=== PATIENT | male | born 1940 | race African-American/Black ===

== ENCOUNTER 2020-05-08 17:35 | Inpatient (IN) | payer MEDICARE, MEDICAID, OTHER ==
[2020-05-08 18:28] LABS: INR-International Normal Ratio 1.3; PTT 35.4 sec (22.9-36.1); Prothrombin Time 16.8 sec (12.0-14.7)
[2020-05-08 18:31] LABS: Hemoglobin 10.4 g/dL (14.0-18.0); Mean Corpuscular HGB CONC 31.3 g/dL (32.0-36.0); Mean Corpuscular Hemoglobin 28.5 pg (27.0-31.0); Mean Corpuscular Volume 90.9 fL (78.0-98.0); Mean Platelet Volume 9.7 fL (7.4-10.4); Platelet Count 1133 thou/uL (130-400); RBC Distribution Width 30.5 % (11.5-14.5); Red Blood Cell (RBC) Count 3.64 mill/uL (4.70-6.10)
[2020-05-08 18:44] LABS: ALT (SGPT) 8 U/L (8-55); AST (SGOT) 19 U/L (5-34); Albumin 3.7 g/dL (3.4-4.8); Alkaline Phosphatase 68 U/L (40-110); Anion Gap 17 mmol/L (10-20); BUN (Urea Nitrogen) 19 mg/dL (8.4-25.7); Bilirubin, Total 0.6 mg/dL (0.2-1.2); Calc. Creatinine Clearance 0 mL/min (70-130); Calcium 8.5 mg/dL (7.8-10.44); Carbon Dioxide 19 mmol/L (23-31); Chloride 107 mmol/L (98-107); Estimated GFR-MDRD 78; Globulin 3.4 g/dL (2.4-3.5); Glucose 145 mg/dL (83-110); Potassium 4.7 mmol/L (3.5-5.1); Protein, Total 7.1 g/dL (5.8-8.1); Sodium 138 mmol/L (136-145)
[2020-05-08 18:51] LABS: Anisocytosis MODERATE=16-30 cells (100X) (0-5/hpf); Band 15 % (5-11); Elliptocytes SLIGHT = 2-5 cells (100X) (0-1/hpf); Eosinophils 6 % (0-10); Helmet Cells SLIGHT = 2-5 cells (100X) (0-1/hpf); Hypochromia SLIGHT = 6-15 cells (100X) (0-5/hpf); Large Platelets SLIGHT; Lymphocytes 12 % (21-51); MDiff Complete? YES; Monocytes 6 % (0-10); Neutrophil 54 % (42-75); Nucleated RBC 2 % (0); Ovalocytes SLIGHT = 2-5 cells (100X) (0-1/hpf); Platelet Morphology Comment Appears Increased; Polychromasia MODERATE = 3-4 cells (100X) (0-2/hpf); Reactive Lymphocytes 7 % (0-10); Reflex for Review?? YES; Schistocytes MODERATE= 6-15 cells (100X) (0-1/hpf); Target Cells SLIGHT = 2-5 cells (100X) (0-1/hpf); Tear Drops SLIGHT = 2-5 cells (100X) (0-1/hpf); White Blood Cell (WBC) Count 13.1 thou/uL (4.8-10.8)
--- NOTE | 2020-05-08 19:49 | CT ---
CT OF BRAIN PERFORMED WITHOUT CONTRAST ENHANCEMENT: 05/08/20 HISTORY: Fell, laceration to forehead. There is generalized ventricular and sulcal prominence. There is no signs of intracerebral hemorrhage or extra-axial fluid collections. Mastoid air cells are clear. There is ethmoid air cell mucosal seb nge. Left frontal scalp hematoma noted. IMPRESSION: No acute intracranial abnormalities. POS: OFF
--- NOTE | 2020-05-08 19:52 | CT ---
CT OF CERVICAL SPINE PERFORMED WITHOUT CONTRAST ENHANCEMENT: 05/08/20 HISTORY: Neck pain status post fall. Vertebral bodies are normal in height. Disc spaces are all relatively well preserved. Fairly prominen t osteophytic change is seen. There are also some prominent degenerative facet changes. Carotid bulb calcifications are noted. There is no significant canal stenosis or significant foraminal narrowing. There is no CT evidence fo r fracture the lung apices are clear. IMPRESSION: No CT evidence of fracture of the cervical spine. POS: OFF
[2020-05-08] MEDS ORDERED: Labetalol HCl 100 MG/20 ML VIAL ONE ×2 (20:31→21:02)
[2020-05-08] MEDS ORDERED: Acetaminophen 500 MG TAB ONE (20:31)
[2020-05-08] MEDS ORDERED: Dextrose 50% Abboject 50 ML SYRINGE SLOW IVP PRN (21:12)
[2020-05-08] MEDS ORDERED: Dextrose 5% in Water 1,000 ML IV PRN (21:12)
[2020-05-08] MEDS ORDERED: HumaLOG 300 UNITS/3 ML VIAL SC PRN (21:12)
--- NOTE | 2020-05-08 21:40 | PDOC.EVN ---
Event Note - Event Note Event Note: [id number] dictated
--- NOTE | 2020-05-08 23:21 | HP ---
CHIEF COMPLAINT: Fall and laceration of scalp. HISTORY OF PRESENT ILLNESS: Mr. Sarmiento is a 79-year-old male with past medical history of hypertension, diabetes type 2, among others, presented to the emergency room after a fall, mechanical, fell on a sharp object with bleeding from laceration of the left frontal head. As per ER physician, the patient had bleeding, which was sutured in the emergency room and bleeding was controlled. The patient denies loss of consciousness. Workup in the emergency room including CT of the brain, CT of the cervical spine, no acute finding. Lab work; the patient was found to have thrombocytosis with a platelet count of . Hemoglobin is 10.4. No prior labs to compare. WBC 13.1. The patient is being admitted to the hospital for further management. Hematology is being consulted. PAST MEDICAL HISTORY: 1. Hypertension. 2. Diabetes mellitus. PAST SURGICAL HISTORY: Reviewed and not pertinent. FAMILY HISTORY: Reviewed and noncontributory. ALLERGIES: NO KNOWN ALLERGIES. HOME MEDICATIONS: Please see home medication reconciliation form for updated medications. REVIEW OF SYSTEMS: Review of 14 systems negative except what is mentioned in the history of present illness. PHYSICAL EXAMINATION: GENERAL: The patient is awake, alert distress. VITAL SIGNS: Blood pressure is 140/70, pulse is 71, respiratory rate is 17, oxygen saturation 99% on room air, and temperature 97.5. HEAD AND NECK: Head is normocephalic. There is a dressing on the left frontal forehead. No signs of active bleed. Neck is supple. CHEST: Fair bilateral air entry. HEART: S1, S2. Regular. ABDOMEN: Soft, nontender. NEUROLOGIC: Awake, alert. The patient has stuttering speech but according to him, this is chronic. EXTREMITIES: No clubbing, no cyanosis. SKIN: There is laceration of the left frontal forehead sutured. IMAGING STUDIES: As mentioned above in the history of present illness. LABORATORY DATA: As mentioned above in the history of present illness. ASSESSMENT: 1. Thrombocytosis. 2. Hypertension. 3. Fall. 4. Laceration on left forehead. 5. Anemia, no prior labs to compare. 6. Diabetes mellitus, type 2. PLAN: 1. Admit. 2. Laceration/bleeding was controlled in the ED. 3. Hematology is consulted for evaluation and further management. 4. Reconcile home medications. 5. Deep venous thrombosis prophylaxis as appropriate. 6. Expected length of stay at least 1 midnight if patient is stable and cleared by Hematology. Job ID: [id number]
[2020-05-08 23:35] VITALS: BMI 29.5
[2020-05-08] MEDS: Sodium Chloride 0.9% 1,000 ML IV SCH (23:49)
[2020-05-09] MEDS: Acetaminophen 325 MG TAB PO PRN ×3 (00:59→15:47)
[2020-05-09 04:31] LABS: Anion Gap 13 mmol/L (10-20); BUN (Urea Nitrogen) 17 mg/dL (8.4-25.7); Calc. Creatinine Clearance 91 mL/min (70-130); Calcium 8.3 mg/dL (7.8-10.44); Carbon Dioxide 20 mmol/L (23-31); Chloride 108 mmol/L (98-107); Estimated GFR-MDRD Greater than 90; Glucose 111 mg/dL (83-110); Potassium 3.9 mmol/L (3.5-5.1); Sodium 137 mmol/L (136-145)
[2020-05-09 05:57] LABS: Anisocytosis MODERATE=16-30 cells (100X) (0-5/hpf); Band 20 % (5-11); Elliptocytes SLIGHT = 2-5 cells (100X) (0-1/hpf); Eosinophils 6 % (0-10); Hemoglobin 8.3 g/dL (14.0-18.0); Lymphocytes 6 % (21-51); MDiff Complete? YES; Mean Corpuscular HGB CONC 31.9 g/dL (32.0-36.0); Mean Corpuscular Hemoglobin 28.8 pg (27.0-31.0); Mean Corpuscular Volume 90.2 fL (78.0-98.0); Mean Platelet Volume 9.9 fL (7.4-10.4); Monocytes 6 % (0-10); Neutrophil 62 % (42-75); Platelet Count 782 thou/uL (130-400); Platelet Morphology Comment Appears Increased; RBC Distribution Width 30.2 % (11.5-14.5); Red Blood Cell (RBC) Count 2.87 mill/uL (4.70-6.10); Schistocytes SLIGHT = 2-5 cells (100X) (0-1/hpf); White Blood Cell (WBC) Count 11.9 thou/uL (4.8-10.8)
[2020-05-09] MEDS: Labetalol HCl 100 MG/20 ML VIAL SLOW IVP PRN ×2 (08:02→15:47)
--- NOTE | 2020-05-09 08:26 | PDOC.HOSPP ---
- Subjective Encounter Date: 05/09/20 Encounter Time: 10:30 Subjective: Patient with mild pain at site of lac to forehead, goose egg contusion there, dressing in place and no bleeding. Otherwise feels normal. States his show slipped off and tripped him and that is why he fell. - Objective Vital Signs & Weight: Vital Signs (12 hours) Temp Pulse Resp BP BP Pulse Ox 05/09/20 08:18 185/80 H 05/09/20 07:52 97.4 F L 74 16 220/91 H 98 05/09/20 03:53 97.8 F 70 15 179/74 H 100 05/08/20 23:54 172/82 H 05/08/20 23:38 100 05/08/20 23:24 97.8 F 71 20 190/90 H 224/90 H 100 Weight Weight 199 lb 8 oz I&O: 05/08/20 05/09/20 05/10/20 06:59 06:59 06:59 Output Total 700 Balance -700 Result Diagrams: 05/09/20 03:50 05/09/20 03:50 Additional Labs: Accuchecks 05/09/20 05:48 POC Glucose 90 Hospitalist ROS - Review of Systems Constitutional: denies: fever, chills, weakness Respiratory: denies: cough, shortness of breath Cardiovascular: denies: chest pain, palpitations Gastrointestinal: denies: nausea, vomiting, abdominal pain Genitourinary: denies: dysuria, hematuria - Medication Medications: Active Medications Generic Name Dose Route Start Last Admin Trade Name Freq PRN Reason Stop Dose Admin Acetaminophen 650 mg 05/08/20 21:12 05/09/20 00:59 Acetaminophen 325 Mg Tab PO 650 mg Q4H PRN Administration Headache/Fever/Mild Pain (1-3) Sodium Chloride 1,000 mls @ 50 mls/hr 05/08/20 21:15 05/08/20 23:49 Normal Saline 0.9% IV 1,000 mls .Q20H NAN Administration Labetalol HCl 10 mg 05/08/20 23:33 05/09/20 08:02 Labetalol Hcl 100 Mg/20 Ml Vial SLOW IVP 2 ml Q4H PRN Administration SBP Greater Than 180 - Exam General Appearance: NAD, awake alert ENT: moist mucosa Heart: RRR, no murmur, no gallops, no rubs Respiratory: CTAB, no wheezes, no rales, no ronchi Gastrointestinal: soft, non-tender, non-distended, normal bowel sounds Neurological: no focal deficits Neurological - other findings: stutter (life long) Psychiatric: normal affect, normal behavior, A&O x 3 Hosp A/P (1) Thrombocytosis Status: Acute Plan: Severe (2) HTN (hypertension) Code(s): I10 - ESSENTIAL (PRIMARY) HYPERTENSION Status: Chronic (3) Diabetes mellitus type 2 in nonobese Code(s): E11.9 - TYPE 2 DIABETES MELLITUS WITHOUT COMPLICATIONS Status: Chronic (4) Fall Code(s): W19.XXXA - UNSPECIFIED FALL, INITIAL ENCOUNTER Status: Acute (5) Laceration of head Code(s): S01.91XA - LACERATION W/O FOREIGN BODY OF UNSP PART OF HEAD, INIT Status: Acute - Plan Patient with severe platelet elevation in ER >1,000,000. This AM still in the 700,000's. Hematology/Oncology consultation today. Laceration repaired in the ER. Home when ok with heme/onc.
[2020-05-09] MEDS ORDERED: Famotidine 20 MG TAB PO SCH (09:00)
[2020-05-09] MEDS ORDERED: hydrALAZINE 25 MG TAB PO PRN (10:02)
[2020-05-09 11:42] LABS: SARS-CoV-2 MS2 Positive; SARS-CoV-2 N Gene Negative; SARS-CoV-2 S Gene Negative; SARS-CoV-2 by NAA Not Detected (NotDetected); SARS-CoV-2 orf1ab Negative
--- NOTE | 2020-05-09 14:52 | CON ---
DATE OF CONSULTATION: 05/09/2020 HISTORY OF PRESENT ILLNESS: Mr. Sarmiento is a 79-year-old male with a history of diabetes as well as hypertension, who fell in his home on the day of admission and cut his head on the end table. He gives a very good history of getting his foot caught and his shoe falling off and then falling to hit his head. He denied any dizziness or presyncopal episodes. He was bleeding profusely and so EMS was called and brought him to [facility]. On admission, he was notably bleeding from a laceration to the left head with a significant hematoma. He was anemic with a hemoglobin of 10.4 and his platelets were 1.1 million. Because of this, he was admitted to the hospital for further observation. Today, he denies any headaches or visual disturbances. The wound is dressed, and he denies any bleeding. He denies any bleeding in the past. No hematochezia. No hemoptysis. No hematuria. No easy bruising. He is on aspirin. As noticed, some bruising from the aspirin, but otherwise nothing abnormal. His platelets 12 hours after being admitted were down to 782,000. He otherwise is feeling well and is hoping to go home soon. PAST MEDICAL HISTORY: 1. Diabetes mellitus. 2. Hypertension. 3. Gout. CURRENT MEDICATIONS: 1. Tylenol p.r.n. 2. Pepcid 20 mg p.o. b.i.d. 3. Glucagon p.r.n. 4. Hydralazine 25 mg p.o. q.4 hours p.r.n. 5. Lispro sliding scale. 6. Labetalol 10 mg IV q.4 hours p.r.n. ALLERGIES: NO KNOWN DRUG ALLERGIES. SOCIAL HISTORY: He lives in [place] with his ex-. Denies any current tobacco or alcohol use. He is a retired regional driver for multiple companies. FAMILY HISTORY: No history of blood disorders. REVIEW OF SYSTEMS: Otherwise, 10-point review of systems is negative. Please see the history of present illness. PHYSICAL EXAMINATION: VITAL SIGNS: Pulse 78, temperature 97.7, O2 saturation 98% on room air, respirations 16, blood pressure 190/85. GENERAL: He is quite pleasant, in no acute distress. He speaks with his daughter, but is mentally clear. HEENT: Extraocular muscles are intact. Pupils are equal, round, and reactive to light. He has no oral cavity lesions. He does have a hematoma with a dressing on his left forehead. CARDIOVASCULAR: Regular rhythm. LUNGS: Clear to auscultation bilaterally. ABDOMEN: Hypoactive bowel sounds. Soft, nontender, nondistended. EXTREMITIES: No edema. Notably, his left knee is somewhat deformed from the fall from 40 years ago and surgery. This undoubtedly contributed to the fall yesterday. LABORATORY DATA: White blood cell count 11.9, hemoglobin 8.3, platelets 782,000, down from 1,133,000. Sodium 137, potassium 3.9, chloride 108, CO2 20, BUN 17, creatinine 0.8, glucose 111. CT scan of the brain showed no intracranial abnormalities. ASSESSMENT: Mr. Sarmiento is a 79-year-old male with: 1. A recent fall with laceration to the left forehead. 2. Thrombocytosis. 3. Microcytic anemia. PLAN: 1. His platelets are already declining with just 12 hours of observation. I suspect the thrombocytosis is still related to the fall and bleeding. This will need to be followed up as an outpatient to ensure that it returns to normal. 2. He has become more anemic on the hospitalization and this may related to the bleed, although on presentation, his hemoglobin was only 10.4. It is possible that he did bleed 3 or 4 units of blood, but this will also need to be followed as an outpatient. We will check iron studies. 3. When he is discharged home, we will make him a followup in our office with labs . Job ID: [id number]
[2020-05-09 15:44] VITALS: TEMP 98
[2020-05-09 16:16] VITALS: BP 185/95
[2020-05-09] MEDS: Sodium Chloride 0.9% 1,000 ML IV SCH (18:26)
--- NOTE | 2020-05-09 20:17 | DIS ---
DATE OF ADMISSION: 05/08/2020 DATE OF DISCHARGE: 05/09/2020 PRIMARY CARE PHYSICIAN: Melodie Arnett. REASON FOR ADMISSION: Scalp laceration with discovery of thrombocytosis. DIAGNOSES AT DISCHARGE: 1. Thrombocytosis, likely related to reaction to fall and bleeding. 2. Microcytic anemia secondary to acute blood loss on top of possible underlying anemia. 3. Scalp laceration and contusion, sutured in the ER. 4. Hypertension. 5. Diabetes mellitus type 2. PROCEDURES: 1. CT scan of the brain showing no acute intracranial abnormalities. There is a left frontal scalp hematoma noted. 2. CT of cervical spine showing no evidence of fracture. SUMMARY OF HOSPITAL COURSE: This is a 79-year-old male who had a shoe slip off at home. He tripped over and fell and hit his head in his house. He got to get a laceration to the left frontal scalp with a large amount of bleeding. He came to the emergency room. There, they sutured the laceration and controlled the bleeding. On the lab work in the emergency room, he was noted to have a severe thrombocytosis greater than a million platelets. The patient was admitted to the hospital. Dr. Mattson was consulted. Recheck platelets in the next day were already coming down to 700,000. His blood count did drop into the 8s. He was asymptomatic from this, and he had no neurologic signs. Dr. Mattson saw the patient and determined the platelet elevation was most likely secondary to the stress reaction from the fall and bleeding. She did recommend following up with her and her clinic for recheck along with a recheck of his blood counts and iron studies. I did discuss the patient with her, and she was okay from her standpoint with him going home today but with close followup in the Hem/Oncology Clinic. The patient did have very elevated blood pressures in the hospital. He had not taken his medications since the day of admission. He could not remember what they were. His remembered some of the names, but could not remember any dosages. We did improve his blood pressure with doses of oral hydralazine. On the day of discharge, the patient felt back to his normal baseline, and he was stable to go home. DISCHARGE MANAGEMENT: Discharged home. ACTIVITY: As tolerated. DIET: Diabetic diet. FOLLOWUP: Follow up with Dr. Mattson. He is to call her office tomorrow to set up an appointment. He is also to follow up with his primary care physician in 1 week. DISCHARGE MEDICATIONS: The patient is to continue all of his home medications, which he should take when he gets home. Job ID: [id number]
== END 2020-05-09 18:35 | disposition home or self-care (01) | DRG 815 ==
LOC: ERS 17:35 → 2NO 20:51
PROVIDERS: ADMIT Internal Medicine; ATTEND Internal Medicine
PROC: 0HQ0XZZ Repair Scalp Skin, External Approach (ICD-10-PCS; principal; 2020-05-08)
DX: D47.3 Essential (hemorrhagic) thrombocythemia (principal); D62 Acute posthemorrhagic anemia; I10 Essential (primary) hypertension; E11.9 Type 2 diabetes mellitus without complications; M06.9 Rheumatoid arthritis, unspecified; S01.01XA Laceration without foreign body of scalp, initial encounter; W19.XXXA Unspecified fall, initial encounter; Z79.82 Long term (current) use of aspirin; Z79.899 Other long term (current) drug therapy; Z20.828 Contact with and (suspected) exposure to other viral communicable diseases
CPT/HCPCS: 12002; 36415; 36416; 70450; 72125; 80048; 80053; 83735; 84484; 85025; 85060; 85610; 85730; 86850; 86900; 86901; 87635; 93005; 96374; 96376; U0003